=== PATIENT | male | born 1975 | race Caucasian/White ===

== ENCOUNTER 2019-02-11 18:19 | Emergency (ER) | payer BC ==
[~2019-02-11] VITALS: Ht 177.8 cm; Wt 93.0 kg
--- OUTSIDE RECORDS SUMMARY | ~2019-02-11 | XMS | Encounter Summary ---
Demographics + + + | Address | [address] | | | [place] [address] | + + + | Preferred Language | Unknown | + + + | Marital Status | Single | + + + | Sabianist Affiliation | Unknown | + + + | Race | Unknown | + + + | Ethnic Group | Unknown | + + + Author + + + | Author | [facility] | | | and [place] | + + + | Organization | [facility] | | | and [place] | + + + | Address | Unknown | + + + | Phone | Unavailable | + + + Support + + +---------+ + | Name | Relationship | Address | Phone | + + +---------+ + | Lori Galvez | ECON | Unknown | | + + +---------+ + Care Team Providers + +------+ + | Care Brick Veneer Maker Name | Role | Phone | + +------+ + PCP | Unavailable | + +------+ + Encounter Details +--------+ + + + + | Date | Type | Department | Care Team | Description | +--------+ + + + + | 04/09/ | Hospital | [facility] | | | | 2005 | Encounter | [facility] | | | | | | CENTER [address] | | | | | | [place] | | | | | | [address] | | | | | | [phone] | | | +--------+ + + + + Social History + +-------+ +--------+------+ | Tobacco Use | Types | Packs/Day | Years | Date | | | | | Used | | + +-------+ +--------+------+ | Never Assessed | | | | | + +-------+ +--------+------+ + + + | Sex Assigned at | Date Recorded | | | | + + + | Not on file | | + + + + + + + | Job Start Date | Occupation | Industry | + + + + | Not on file | Not on file | Not on file | + + + + + + + + | Travel History | Travel Start | Travel End | + + + + + + | No recent travel history available. | + + documented as of this encounter Plan of Treatment Not on filedocumented as of this encounter Visit Diagnoses Not on filedocumented in this encounter"
--- OUTSIDE RECORDS SUMMARY | ~2019-02-11 | XMS | Encounter Summary ---
Demographics + + + | Address | [address] | | | [place] [address] | + + + | Preferred Language | Unknown | + + + | Marital Status | Single | + + + | Buddhism Affiliation | Unknown | + + + | Race | Unknown | + + + | Ethnic Group | Unknown | + + + Author + + + | Author | [facility] | | | and [place] | + + + | Organization | [facility] | | | and [...] Team Providers + +------+ + | Care Core Winder Name | Role | Phone | + +------+ + PCP | Unavailable | + +------+ + Encounter Details +--------+ + + + + | Date | Type | Department | Care Team | Description | +--------+ + + + + | 04/09/ | Hospital | [facility] | | | | 2005 | Encounter | [facility] EM[facility] | | | | | | CENTER [address] | | | | | | [place] | | | | | | [address] | | | | | | [phone] | | | +--------+ + + + [...]
--- OUTSIDE RECORDS SUMMARY | ~2019-02-11 | XMS | Encounter Summary ---
Demographics + + + | Address | [address] | | | [place] [address] | + + + | Preferred Language | Unknown | + + + | Marital Status | Single | + + + | Hoahaoism Affiliation | Unknown | + + + | Race | Unknown | + + + | Ethnic Group | Unknown | + + + Author + + + | Author | [facility] | | | and [place] | + + + | Organization | [facility] | | [...] Team Providers + +------+ + | Care Political Science Chair Name | Role | Phone | + +------+ + PCP | Unavailable | + +------+ + Encounter Details +--------+ + + + + | Date | Type | Department | Care Team | Description | +--------+ + + + + | 04/14/ | Hospital | [facility] | [place], | | | 2005 | Encounter | MED CTR EMERGENCY | Dane Jones MD [address] | | | | | [place] [address] | [place] | | | | | [address] | [place] [address] | | | | | [address] | [phone] | | | | | [phone] | | | +--------+ + + + [...]
--- OUTSIDE RECORDS SUMMARY | ~2019-02-11 | XMS | Clinical Summary ---
Demographics + + + | Address | [address] | | | [place] [address] | + + + | Preferred Language | Unknown | + + + | Marital Status | Single | + + + | Latter-Day Affiliation | Unknown | + + + | Race | Unknown | + + + | Ethnic Group | Unknown | + + + Author + + + | Author | [facility] | | | and [place] | + + + | Organization | [facility] | | | and [...] Team Providers + +------+ + | Care Board Handler Name | Role | Phone | + +------+ + PCP | Unavailable | + +------+ + Allergies Not on File Medications Not on file Active Problems Not on file Social History + +-------+ +--------+------+ | Tobacco [...] recent travel history available. | + + Last Filed Vital Signs Not on file Plan of Treatment + + + + + | Health Maintenance | Due Date | Last Done | Comments | + + + + + | Vaccine: | | | | | Dtap/Tdap/Td (1 - | 5 | | | | Tdap) | | | | + + + + + | Vaccine: Influenza | | | | | (#1) | 9 | | | + + + + + Results Not on filefrom Last 3 Months"
--- OUTSIDE RECORDS SUMMARY | ~2019-02-11 | XMS | Clinical Summary ---
Demographics + + + | Address | [address] | | | [place] [address] | + + + | Preferred Language | Unknown | + + + | Marital Status | Single | + + + | Methodist Affiliation | Unknown | + + + | Race | Unknown | + + + | Ethnic Group | Unknown | + + + Author + + + | Author | [facility] | | | and [place] | + + + | Organization | [facility] | | | and [...] Team Providers + +------+ + | Care Solar Installation Supervisor Name | Role | Phone | + [...]
--- OUTSIDE RECORDS SUMMARY | ~2019-02-11 | XMS | Encounter Summary ---
Demographics + + + | Address | [address] | | | [place] [address] | + + + | Preferred Language | Unknown | + + + | Marital Status | Single | + + + | Rastafari Affiliation | Unknown | + + + | Race | Unknown | + + + | Ethnic Group | Unknown | + + + Author + + + | Author | [facility] | | | and [place] | + + + | Organization | [facility] | | | and [...] Team Providers + +------+ + | Care Correctional Sergeant Name | Role | Phone | + +------+ + PCP | Unavailable | + +------+ + Encounter Details +--------+ + + + + | Date | Type | Department | Care Team | Description | +--------+ + + + + | 04/14/ | Hospital | [facility] | [place], | | | 2005 | Encounter | MED CTR EMERGENCY | Dane Jones MD [address] | | | | | [place] [address] | [place] [facility] | | | | | [place] | [place] [address] | | | | | [address] | [phone] | | | | | [phone] | | | +--------+ + + + [...]
[~2019-02-11 18:19] MED LIST: NORCO 5-325 TA1 EACH PO
[2019-02-11] MEDS ORDERED: COLCRYS0.6 MG PO (18:40)
[2019-02-11] MEDS ORDERED: INDOMETHACIN50 MG PO (19:31)
== END 2019-02-11 19:38 | disposition home or self-care (01) ==
LOC: ED 18:19
DX: M10.9 Gout, unspecified (principal); Z79.899 Other long term (current) drug therapy
CPT/HCPCS: 73660; 99283-25

== ENCOUNTER 2019-03-02 17:17 | Emergency (ER) | payer BC ==
[~2019-03-02] VITALS: Ht 177.8 cm; Wt 93.0 kg
[~2019-03-02 17:17] MED LIST changes: +COLCRYS0.6 MG PO; +INDOMETHACIN50 MG PO
--- OUTSIDE RECORDS SUMMARY | 2019-03-02 17:20 | XMS ---
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 Maurizio has no Care Guidelines for this patient. [place] [facility] (12 MO.) [facility] TOTAL 2 NOTE: Visits indicate total known visits. ED/C VISIT TRACKING (12 MO.) 03/02/2019 17:17 [facility] [place] TYPE: Emergency COMPLAINT: - KNEE PAIN 02/11/2019 18:20 [facility] [place] TYPE: Emergency COMPLAINT: - TOE PAIN, INJ DIAGNOSES: - Pain in left toe(s) - Other longterm (current) drug therapy - Gout, unspecified INPATIENT VISIT TRACKING (12 MO.) No inpatient visits to display in this time frame [id number]
[2019-03-02] MEDS ORDERED: COLCRYS0.6 MG PO (18:18)
== END 2019-03-02 18:26 | disposition home or self-care (01) ==
LOC: ED 17:17
DX: M25.462 Effusion, left knee (principal)
CPT/HCPCS: 99283; A9270

== ENCOUNTER 2022-02-17 23:09 | Emergency (ER) | payer BC ==
[~2022-02-17] VITALS: Ht 177.8 cm; Wt 99.8 kg
[2022-02-17] MEDS ORDERED: ALLOPURINOL100 MG (23:29)
[2022-02-18] MEDS ORDERED: AMOX TR-K CLV1 EAC1 PO (01:28)
== END 2022-02-18 01:57 | disposition home or self-care (01) ==
LOC: ED 23:09
DX: J02.9 Acute pharyngitis, unspecified (principal); I10 Essential (primary) hypertension; M10.9 Gout, unspecified; Z20.822 Contact with and (suspected) exposure to COVID-19; Z79.899 Other long term (current) drug therapy
CPT/HCPCS: 87502; 96372; 99283; J1100; U0003

== ENCOUNTER 2023-01-05 05:52 | Emergency (ER) | payer BC ==
[~2023-01-05] VITALS: Ht 177.8 cm; Wt 99.8 kg
[~2023-01-05 05:52] MED LIST changes: +ALLOPURINOL100 MG; +AMOX TR-K CLV1 EAC1 PO
[2023-01-05] MEDS ORDERED: LOSARTAN POTASS50 MG PO (06:02)
[2023-01-05] MEDS ORDERED: METFORMIN HCL1000 MG PO (06:02)
[2023-01-05 06:40] VITALS: BP 126/64
[2023-01-27] MEDS ORDERED: CEPHALEXIN500 M1 PO (13:27)
[2023-01-27] MEDS ORDERED: HYDROCODON-ACE1 EA11 PO (13:27)
== END 2023-01-05 06:43 | disposition home or self-care (01) ==
LOC: ED 05:52
DX: K59.00 Constipation, unspecified (principal); I10 Essential (primary) hypertension; E11.9 Type 2 diabetes mellitus without complications; Z79.84 Long term (current) use of oral hypoglycemic drugs; Z11.52 Encounter for screening for COVID-19
CPT/HCPCS: 99283

== ENCOUNTER 2023-01-12 13:16 | Emergency (ER) | payer BC ==
[~2023-01-12] VITALS: Ht 177.8 cm; Wt 97.2 kg
[~2023-01-12 13:16] MED LIST changes: +LOSARTAN POTASS50 MG PO; +METFORMIN HCL1000 MG PO
--- OUTSIDE RECORDS SUMMARY | 2023-01-12 13:20 | XMS ---
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 Care History Medical/Surgical 03/05/2019 [facility] - Patient is currently established with [facility]. If patient is seen in the ED during business hours. Please contact CHWs at [facility]. Care Recommendation: If this patient has had 5 or more Emergency Department visits in the last 12 months.\T\nbsp; Patient will require education on the scope and purpose of the ED as an acute care provider not a Primary Care Provider and should not be utilized for chronic conditions.\T\nbsp; These are guidelines and the provider should exercise clinical judgment when providing care. 03/05/2019 [facility] Patient scheduled with Ludy Vogel on 03/07/2019. E.D. VISIT COUNT (12 MO.) 3 [facility] TOTAL 3 NOTE: Visits indicate total known visits. 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
[2023-01-12] MEDS ORDERED: HYDROCODON-ACE1 EA10 (13:31)
[2023-01-12] MEDS ORDERED: NAPROSYN500 MG PO (13:47)
[2023-01-12] MEDS ORDERED: HYDROCODON-ACE1 EA10 PO (13:47)
[2023-01-12] MEDS ORDERED: LIDOCAINE5 GM TOP (13:47)
[2023-01-12] MEDS ORDERED: CEPHALEXIN500 M1 PO (13:47)
[2023-01-12] MEDS ORDERED: METRONIDAZOLE500 MG PO (13:53)
[2023-01-12 14:03] VITALS: BP 108/80
== END 2023-01-12 14:03 | disposition home or self-care (01) ==
LOC: ED 13:16
DX: K61.0 Anal abscess (principal); M25.562 Pain in left knee; I10 Essential (primary) hypertension; Z79.84 Long term (current) use of oral hypoglycemic drugs
CPT/HCPCS: J0696

== ENCOUNTER 2023-01-13 14:32 | Emergency (ER) | payer BC ==
[~2023-01-13] VITALS: Ht 177.8 cm; Wt 97.1 kg
[~2023-01-13 14:32] MED LIST changes: +CEPHALEXIN500 M1 PO; +HYDROCODON-ACE1 EA10; +HYDROCODON-ACE1 EA10 PO; +LIDOCAINE5 GM TOP; +METRONIDAZOLE500 MG PO; +NAPROSYN500 MG PO
--- OUTSIDE RECORDS SUMMARY | 2023-01-13 14:34 | XMS ---
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 Care History Medical/Surgical 03/05/2019 [facility] - Patient is currently established with [facility]. If patient is seen in the ED during business hours. Please contact CHWs at [facility]. Care Recommendation: If this patient [...] exercise clinical judgment when providing care. 03/05/2019 [facility] Patient scheduled with Ludy Vogel on 03/07/2019. E.D. VISIT COUNT (12 MO.) 4 [facility] TOTAL 4 NOTE: Visits indicate total known visits. ED/UCC VISIT TRACKING (12 MO.) 01/13/2023 14:33 [facility] [place] TYPE: Emergency COMPLAINT: - LT KNEE PAIN 01/12/2023 13:17 [facility] [place] TYPE: Emergency COMPLAINT: - L LEG PAIN, HEMORRHOIDS 01/05/2023 05:53 [facility] [place] TYPE: Emergency COMPLAINT: - STOOL PROBLEM DIAGNOSES: - Constipation, unspecified - Encounter for screening for COVID-19 - Essential (primary) hypertension - detention (current) use of oral hypoglycemic drugs - Type 2 diabetes mellitus without complications 02/17/2022 23:10 [facility] [place] TYPE: Emergency COMPLAINT: - SORE THROAT DIAGNOSES: - Acute pharyngitis, unspecified - Contact with and (suspected) exposure to COVID-19 - Essential (primary) hypertension - Gout, unspecified - 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
[2023-01-13 15:24] VITALS: BP 116/75
== END 2023-01-13 15:25 | disposition home or self-care (01) ==
LOC: ED 14:32
DX: M23.92 Unspecified internal derangement of left knee (principal); K61.0 Anal abscess; E11.9 Type 2 diabetes mellitus without complications; I10 Essential (primary) hypertension; Z79.84 Long term (current) use of oral hypoglycemic drugs; Z79.899 Other long term (current) drug therapy
CPT/HCPCS: 99283

== ENCOUNTER 2023-01-29 12:13 | Observation (INO) | payer BC ==
[~2023-01-29] VITALS: Ht 177.8 cm; Wt 97.2 kg
[~2023-01-29 12:13] MED LIST changes: +HYDROCODON-ACE1 EA11 PO
[2023-01-29 12:32] LABS: BASOPHILS 0.6 % (0-2); EOSINOPHILS 0.5 % (0-6); HEMATOCRIT 42.1 % (35.0-50.0); HEMOGLOBIN 14.4 g/dL (12.0-18.0); LYMPHOCYTES 5.8 % (24-44); MCH 28.5 (27-36); MCHC 34.2 g/dl (30-36); MCV 83.4 fl (81-99); NEUTROPHILS 85.1 % (39-80); PLATELET COUNT 301 K/uL (140-440); RBC 5.05 M/ul (4.3-5.7); RDW 13.6 (10.5-15.0)
[2023-01-29 12:48] LABS: ALBUMIN/GLOBULIN RATIO 0.83 (1.1-2.4); ANION GAP 14.2 (7-21); BILIRUBIN, TOTAL 1.8 ng/dL (0.2-1.0); BUN/CREATININE RATIO 7.93 (6.0-28.6); CALCIUM 9.2 mg/dL (8.5-10.1); CREATININE, SERUM 1.26 mg/dL (0.70-1.30); POTASSIUM 4.2 mmol/L (3.5-5.1); PROTEIN, TOTAL 8.8 g/dL (6.4-8.2)
[2023-01-29 12:53] LABS: LACTIC ACID, BLOOD 1.9 mmol/L (0.4-2.0)
[2023-01-29 13:04] LABS: INFLUENZA B NAA NEGATIVE (NEGATIVE); RESPIRATORY SYNCYTIAL VIR NAA NEGATIVE (NEGATIVE)
[2023-01-29 13:07] LABS: BILIRUBIN, URINE NEGATIVE (negative); BLOOD/HGB, URINE MODERATE (Negative); KETONE, URINE NEGATIVE (Negative); LEUK ESTERASE, URINE NEGATIVE (negative); NITRITE, URINE NEGATIVE (negative); PH, URINE 5.5 (5-7)
[2023-01-29 13:16] LABS: EPITHELIAL CELLS, URINE SQUAMOUS 1+ /lpf (0-1+); REFLEX CULTURE, URINE No (No)
[2023-01-29 13:21] LABS: AMPHETAMINES, URINE NEGATIVE (NEGATIVE); BARBITURATES, URINE NEGATIVE (NEGATIVE); BENZODIAZEPINE, URINE NEGATIVE (NEGATIVE); BUPRENORPHINE, URINE NEGATIVE (NEGATIVE); CANNABINOID, URINE NEGATIVE (NEGATIVE); COCAINE, URINE NEGATIVE (NEGATIVE); ECSTASY, URINE NEGATIVE (NEGATIVE); FENTANYL, URINE NEGATIVE (NEGATIVE); METHADONE, URINE NEGATIVE (NEGATIVE); OPIATES, URINE POSITIVE (NEGATIVE); OXYCODONE, URINE NEGATIVE (NEGATIVE); PHENCYCLIDINE, URINE NEGATIVE (NEGATIVE)
[2023-01-29] MEDS ORDERED: COLCRYS0.6 MG PO (14:26)
[2023-01-29] MEDS ORDERED: IBUPROFEN600 MG PO (14:29)
[2023-01-29 15:57] VITALS: BP 148/88
--- NOTE | 2023-01-29 17:10 | NUR ---
hossein-rectal packing removed. pt tolerated sitz bath for approximately 5min. assisted pt back to bed.
--- NOTE | 2023-01-29 18:16 | NUR ---
PT A/O, RESPIRATIONS EVEN AND REGULAR. PT EATING WELL. DENIES NEEDS ATT. CALL LIGHT WITHIN REACH.
[2023-01-29 18:38] VITALS: BP 115/63
--- NOTE | 2023-01-29 19:40 | NUR ---
RN CALLED TO ROOM, PT REQUESTS ASSIST UP TO BR TO HAVE A BM, NURSE ASSIST, GAIT STEADY, PT HAD LARGE SOFT BROWN GREEN STOOL WITH SCANT BLOOD TINGUED NOTED ON TISSUE, BACK TO BED, PT QUIET PAINFUL, RECENTLY VOIDED PER URINAL YELLOW URINE, PT'S RN NOTIFED OF PT'S PAIN.
[2023-01-29 19:48] VITALS: BP 131/73
--- NOTE | 2023-01-29 23:21 | NUR ---
ON ROOM AIR, LAYING ON LEFT SIDE, TENDER R SIDE ANNAL AREA, GETS SITZ BATH BOD. URINAL EMPTIED, VOIDING MEDIUM YELLOW COLORED URINE. QS. IVF INFUSING
[2023-01-30 01:32] VITALS: BP 117/73
[2023-01-30 05:23] LABS: BASOPHILS 0.8 % (0-2); EOSINOPHILS 0.7 % (0-6); HEMATOCRIT 35.5 % (35.0-50.0); HEMOGLOBIN 12.3 g/dL (12.0-18.0); LYMPHOCYTES 10.7 % (24-44); MCH 28.6 (27-36); MCHC 34.6 g/dl (30-36); MCV 82.8 fl (81-99); MONOCYTES 8.5 % (0-12); NEUTROPHILS 79.3 % (39-80); PLATELET COUNT 265 K/uL (140-440); RBC 4.29 M/ul (4.3-5.7); RDW 13.6 (10.5-15.0)
[2023-01-30 05:39] LABS: ANION GAP 14.6 (7-21); BUN/CREATININE RATIO 6.48 (6.0-28.6); CALCIUM 8.1 mg/dL (8.5-10.1); CREATININE, SERUM 1.08 mg/dL (0.70-1.30); POTASSIUM 3.6 mmol/L (3.5-5.1)
[2023-01-30 05:47] VITALS: BP 131/80
--- NOTE | 2023-01-30 08:21 | NUR ---
Patient in bed, lying flat. Patient has signs of pain and vocalized need for management. RN entered room, and pt reported it to RN. Acu check completed. Call light within reach.
--- NOTE | 2023-01-30 08:40 | NUR ---
IV IN LEFT AC D/C'D DUE TO PHLEBITIS. IV IN RIGHT HAND D/C DUE TO INTOLERABLE PAIN WITH FLUSHEING. BOTH IV'S REMOVED, WITH TIPS INTACT. GAUZE AND TAPE DRESSING APPLIED TO EACH SITE. PT TOLERATED WELL. NEW 22G IV ESTABLISHED IN LEFT MEDIAL AC. PT TOLERATED WELL.
--- NOTE | 2023-01-30 09:30 | NUR ---
recieved report from nurse at 0730. pt was in bed resting. currently pt is complaining of pain and requested pain medications. dr meadows prescribed morphine for pain see emar. assessment done. no abnormal findings. pt also recieved his meds. no other cares needed or requested at this time.
[2023-01-30 10:15] VITALS: BP 141/89
[2023-01-30 12:13] LABS: BASOPHILS 0.7 % (0-2); EOSINOPHILS 0.7 % (0-6); HEMATOCRIT 36.1 % (35.0-50.0); HEMOGLOBIN 12.2 g/dL (12.0-18.0); LYMPHOCYTES 12.4 % (24-44); MCH 28.3 (27-36); MCHC 33.8 g/dl (30-36); MCV 83.6 fl (81-99); MONOCYTES 6.6 % (0-12); NEUTROPHILS 79.6 % (39-80); PLATELET COUNT 260 K/uL (140-440); RBC 4.32 M/ul (4.3-5.7); RDW 13.4 (10.5-15.0)
[2023-01-30 12:26] LABS: ALBUMIN 2.9 g/dL (3.4-5.0); ALBUMIN/GLOBULIN RATIO 0.73 (1.1-2.4); ANION GAP 12.5 (7-21); BILIRUBIN, TOTAL 1.4 ng/dL (0.2-1.0); BUN/CREATININE RATIO 8.1 (6.0-28.6); CREATININE, SERUM 1.11 mg/dL (0.70-1.30); POTASSIUM 3.5 mmol/L (3.5-5.1); PROTEIN, TOTAL 6.9 g/dL (6.4-8.2)
[2023-01-30 14:02] VITALS: BP 135/80
--- NOTE | 2023-01-30 14:26 | NUR ---
medications reconciled
[2023-01-30 18:11] VITALS: BP 122/84
--- NOTE | 2023-01-30 20:19 | NUR ---
PATIENT REPORTS PAIN 4/10 ON PAIN SCALE AND STARTING TO WORSEN. ADMINISTERED OXYCODONE PO PER APR. PROVIDED FRESH ICE WATER.
[2023-01-30 21:43] VITALS: BP 131/92
--- NOTE | 2023-01-30 21:48 | NUR ---
FULL BODY ASSESSMENT DONE, LOUISE-ANAL AREA SATURATED WITH YELLOW MILKY DRAIANGE, CLEANSED AREA WITH BARRIER CLOTHS AND PLACED ABD PAD TO COLLECT DRAIANGE. PATIENT REPORTED THAT HE WAS FEELING THE AREA WITH HIS HAND. PROVIDED EDUCATION TO PATIENT ABOUT GERMS, ENCOURAGED HAND WASHING AND GLOVES. PATIENT VERBALIZED UNDERSTANDING. VS MARY. CBG 151, ADMINISTERED 1 UNIT INSULIN SLIDING SCALE. NO OTHER NEEDS AT THIS TIME.
[2023-01-31 05:27] VITALS: BP 125/90
--- NOTE | 2023-01-31 05:55 | NUR ---
PATIENT SLEPT WELL THROUGHOUT THE NIGHT, CALLED ONCE FOR PAIN MEDICATION. ADMINISTERED PO OXYCODONE PER MAR, APPEARS TO BE EFFECTIVE WITH CONTROLLING PAIN. PROVIDED EDUCATION ON HYGEINE AND BACTERIA, PATIETN APPEARED RECEPTIVE. PROVIDED ABDS AND BARRIER CLOTHS TO KEEP LOUISE ANAL AREA CLEAN AND DRAINAGE CONTROLLED. NOTED YELLOWISH MILKY DRAINAGE SATURATING BRIEF. SURGICAL SITE APPEARS WNL TO INNER GLUTEAL [place].
[2023-01-31] MEDS ORDERED: CEFDINIR300 MG PO (08:45)
[2023-01-31] MEDS ORDERED: METRONIDAZOLE500 MG PO (08:45)
--- NOTE | 2023-01-31 09:00 | NUR ---
WHILE PATIENT WAS IN TAKING HIS SHOWER I CHANGED HIS BED LINENS. ALSO CLEANED UP HIS TOWELS. PATIENT IS SITTING UP IN HIS CHAIR WATCHING TV.
[2023-01-31 09:45] VITALS: BP 131/82
[2023-01-31 09:49] VITALS: BP 131/82
--- NOTE | 2023-01-31 10:05 | NUR ---
CAME AND CHECKED ON PATIENT AT 0715 AND PATIENT WAS AWAKE AND NEEDED PAIN MEDICATION. PT RECIEVED TYLENOL. RECIEVED PT REPORT FROM NURSE AT 0740. PT CURRENTLY IS UP IN CHAIR ON THE PHONE. ASSESSMENT COMPLETE MEDS PASSED. DR GOLDBERG STATES THAT PT WILL BE DISCHARGED AROUND NOON (LUNCH TIME). PT HAD A SHOWER. NO ABNORMAL FINDINGS SINCE LAST ASSESSMENT. NO OTHER CARES NEEDED OR REQUESTED AT THIS TIME. CALL LIGHT WITHIN REACH
--- NOTE | 2023-01-31 11:14 | NUR ---
TALKED WITH PT ABOUT CURRENT ILLNESS. GAVE INSTRUCTIONS ACCORDING TO DISCHARGE PAPERS. POT GIVEN WRIITEN DOCUMANTATION. TLD TO FOLLOW UP WITH PROVIDER IN 7-10 DAYS. PT IS AWARE OF PHARMACIES CLOSED TODAY SO HOSPITAL PHARMACY WILL GIVE HIM A DAY SUPPLY OF ANTIBIOTICS AND TO CONTINUE HIS OPIOD MEDICATION WHEN HE GETS HOME PRESCRIBED. IV TAKEN OUT CATHETER INTACT. EDUCATION GIVEN. NO OTHER CARES OR REQUESTS NEEDED AT THIS TIME CALL LIGHT WITHIN REACH
== END 2023-01-31 11:38 | disposition home or self-care (01) ==
LOC: ED 12:13 → MS 12:15
PROVIDERS: Emergency Medicine; ADMIT Internal Medicine; ATTEND Internal Medicine
DX: K61.0 Anal abscess (principal); E87.1 Hypo-osmolality and hyponatremia; I10 Essential (primary) hypertension; E11.9 Type 2 diabetes mellitus without complications; Z79.84 Long term (current) use of oral hypoglycemic drugs; Z79.899 Other long term (current) drug therapy; Z20.822 Contact with and (suspected) exposure to COVID-19
CPT/HCPCS: 36415; 51701; 71045; 74177; 80048; 80053; 80307; 81001; 83605; 85025; 87040; 87502; 96365; 96367; 96368; 96375; 96376; 99285-25; A9270; C9803; G0378; G0480; J0692; J0696; J1815; J1885; J2270; J7030; Q9967; U0002

== ENCOUNTER 2024-06-08 05:35 | Emergency (ER) | payer BC ==
[~2024-06-08] VITALS: Ht 177.8 cm; Wt 100.0 kg
[~2024-06-08 05:35] MED LIST changes: +ACETAMINOPHEN500 MG PO; +ALLOPURINOL100 MG PO; +CEFDINIR300 MG PO; +CIPROFLOXACIN500 MG PO; +IBUPROFEN600 MG PO; +METRONIDAZOLE250 MG PO; +OXYCODON-ACETA1 EAC2 PO; +SIMVASTATIN20 MG PO
[2024-06-08 06:04] LABS: PH, VENOUS 7.363 (7.31-7.41)
[2024-06-08 06:05] LABS: BASOPHILS 1.3 % (0-2); EOSINOPHILS 2.5 % (0-6); HEMATOCRIT 41.7 % (35.0-50.0); HEMOGLOBIN 14.9 g/dL (12.0-18.0); LYMPHOCYTES 30.1 % (24-44); MCH 29.3 (27-36); MCHC 35.6 g/dl (30-36); MCV 82.1 fl (81-99); MONOCYTES 7.4 % (0-12); NEUTROPHILS 58.7 % (39-80); PLATELET COUNT 186 K/uL (140-440); RBC 5.08 M/ul (4.3-5.7); RDW 13.5 (10.5-15.0)
[2024-06-08] MEDS ORDERED: Insulin Regular, Human 100 UNIT/ML ML SUB-Q ONE (06:15)
[2024-06-08 06:27] LABS: ALBUMIN 3.4 g/dL (3.4-5.0); ALBUMIN/GLOBULIN RATIO 1.03 (1.1-2.4); ANION GAP 13.1 (7-21); BILIRUBIN, TOTAL 0.8 mg/dL (0.2-1.0); BUN/CREATININE RATIO 6.52 (6.0-28.6); CALCIUM 7.9 mg/dL (8.5-10.1); CREATININE, SERUM 1.38 mg/dL (0.70-1.30); MAGNESIUM 1.8 mg/dL (1.8-2.4); POTASSIUM 3.1 mmol/L (3.5-5.1); PROTEIN, TOTAL 6.7 g/dL (6.4-8.2)
[2024-06-08] MEDS ORDERED: LACTATED RINGER'S 1,000 ML IV ONE (06:30)
[2024-06-08] MEDS ORDERED: GLYBURIDE2.5 MG PO (06:55)
[2024-06-08] MEDS ORDERED: POTASSIUM CHLORIDE 20 MEQ/15 ML CUP PO ONE (07:00)
[2024-06-08 07:16] VITALS: BP 134/98
--- NOTE | 2024-06-08 12:45 | EKG ---
[facility] [address] [facility] [place] [address] Signed Normal sinus rhythm Minimal voltage criteria for LVH, may be normal variant ( R in aVL ) Borderline ECG When compared with ECG of 14-JUN-2023 16:09, No significant change was found Confirmed by Carl Pisano DO ([id number]) on 06/08/2024 12:45:25 PM Electronically Signed By: CARL PISANO DO 06/08/24 1245 PATIENT NAME: ALICIA HORN Electrocardiogram DATE OF : 71 PHYSICIAN: CARL PISANO DO REPORT #: [id number] REPORT IS CONFIDENTIAL AND NOT TO BE RELEASED WITHOUT AUTHORIZATION
== END 2024-06-08 07:19 | disposition home or self-care (01) ==
LOC: ED 05:35
PROVIDERS: Family Medicine
DX: E11.65 Type 2 diabetes mellitus with hyperglycemia (principal); I10 Essential (primary) hypertension; Z79.899 Other long term (current) drug therapy; Z79.84 Long term (current) use of oral hypoglycemic drugs
CPT/HCPCS: 36415; 80053; 82010; 82803; 83735; 84484; 85025; 93005; 93010; 99285; A9270; J1815; J7121